=== PATIENT | female | born 1990 | race Caucasian/White ===

== ENCOUNTER 2019-09-10 19:24 | Emergency (ER) | payer MEDICAID ==
[~2019-09-10] VITALS: Ht 154.9 cm; Wt 68.0 kg
[2019-09-10 19:24] VITALS: BP_SYST 134
--- NOTE | 2019-09-10 19:24 | NUR ---
Patient to ER bed 7 to gown for evaluation. Side rails up.
--- NOTE | 2019-09-10 19:30 | NUR ---
ER at bedside examining patient.
--- NOTE | 2019-09-10 19:30 | NUR ---
Patient brought in with [facility] for medical clearance c/o chest wall pain to the right side. Patient states"my chest pain is on the right side where my heart is." Describes the pain feels like "fucking [place] sitting on my chest. They are fat mother fuckers." Denies any shortness of breath, headache, nausea, vomiting or diarrhea. No other complaints/injuries per patient or as noted. Will continue to monitor.
[2019-09-10 19:37] VITALS: BP_SYST 134
--- NOTE | 2019-09-10 19:37 | NUR ---
Patient discharged to [facility] and given written and verbal discharge instructions and verbalizes understanding. ER MD discussed with patient the results and treatment provided. Patient in stable condition. ID arm band removed. No Rx given. Patient educated on pain management and to follow up with PMD. Pain Scale 0/10. Opportunity for questions provided and answered. Medication side effect fact sheet provided.
[2019-09-10] MEDS ORDERED: QUEtiapine FUMARATE 100 MG TABLET PO SCH (21:00)
== END 2019-09-10 19:37 ==
LOC: SED 19:24
DX: R07.89 Other chest pain (principal); F12.90 Cannabis use, unspecified, uncomplicated
CPT/HCPCS: 93005; 99283